=== PATIENT | male | born 1990 | race Caucasian/White ===

== ENCOUNTER 2022-02-11 11:46 | Inpatient (IN) | payer OTHER ==
[~2022-02-11] VITALS: Ht 193 cm; Wt 105.3 kg
[~2022-02-11 11:46] MED LIST: FOLIC ACID 1MG TAB PO SCH; MULTIVITAMINS/MINERALS THERAP 1 TAB PO SCH
[2022-02-11] MEDS ORDERED: NS 1,000 ML IV ONE (12:20)
[2022-02-11] MEDS ORDERED: LORazepam 2 MG/ML VIAL IV STA ×2 (12:23→20:05)
[2022-02-11 12:48] LABS: BASO % 1.5 % (0.0-1.0); LYMPH # 0.3 10^3/uL (1.5-5.0); LYMPH % 14.7 % (24.0-44.0); MEAN CORPUSCULAR HEMOGLOBIN 31.6 pg (27.0-33.0); MEAN CORPUSCULAR HGB CONC 34.9 g/dl (32.0-36.5); MEAN CORPUSCULAR VOLUME 90.5 fl (80.0-96.0); MONO # 0.3 10^3/uL (0.0-0.8); MONO % 14.7 % (2.0-8.0); NEUTROPHILS # 1.4 10^3/uL (1.5-8.5); NEUTROPHILS % 68.6 % (36.0-66.0); RED BLOOD COUNT 4.75 10^6/uL (4.30-6.10)
[2022-02-11] MEDS: THIAMINE 100 MG TAB PO SCH ×2 (13:01→20:48)
[2022-02-11 13:14] LABS: PLATELET COUNT, AUTOMATED 52 10^3/uL (150-450)
[2022-02-11 13:28] LABS: ACETAMINOPHEN LEVEL < 2.0 UG/ML (10.0-30.0); ALBUMIN 4.7 GM/DL (3.2-5.2); ALT/SGPT 276 U/L (12-78); BILIRUBIN,DIRECT 0.4 MG/DL (0.0-0.2); BILIRUBIN,TOTAL 2.5 MG/DL (0.2-1.0); BLOOD UREA NITROGEN 14 MG/DL (7-18); CARBON DIOXIDE LEVEL 25 MEQ/L (21-32); CHLORIDE LEVEL 93 MEQ/L (98-107); CREATININE FOR GFR 1.03 MG/DL (0.70-1.30); ETHYL ALCOHOL (ETHANOL) 0.355 % (0.000-0.010); GLOMERULAR FILTRATION RATE > 60.0 (>60); GLUCOSE, FASTING 80 MG/DL (70-100); POTASSIUM SERUM 5.8 MEQ/L (3.5-5.1); SALICYLATE LEVEL < 1.7 MG/DL (5.0-30.0); SODIUM LEVEL 131 MEQ/L (136-145); TOTAL PROTEIN 8.3 GM/DL (6.4-8.2)
[2022-02-11] MEDS: LORazepam 2 MG TAB PO PRN ×3 (19:00→23:40)
[2022-02-11] MEDS ORDERED: HOME MED LIST COMPLETE! XX SCH (20:40)
[2022-02-11] MEDS ORDERED: NS 1,000 ML IV SCH (23:20)
[2022-02-11 23:39] LABS: HEMATOCRIT 37.6 % (42.0-52.0); HEMOGLOBIN 13.1 g/dl (13.5-17.5); MEAN CORPUSCULAR HEMOGLOBIN 31.6 pg (27.0-33.0); MEAN CORPUSCULAR HGB CONC 34.8 g/dl (32.0-36.5); MEAN CORPUSCULAR VOLUME 90.8 fl (80.0-96.0); RED BLOOD COUNT 4.14 10^6/uL (4.30-6.10); WHITE BLOOD COUNT 1.8 10^3/uL (4.0-10.0)
[2022-02-11 23:40] LABS: PLATELET COUNT, AUTOMATED 43 10^3/uL (150-450)
[2022-02-12] VITALS (13 sets, daily range): BP systolic 159–165; BP diastolic 85–101
[2022-02-12 00:11] LABS: BLOOD UREA NITROGEN 13 MG/DL (7-18); CALCIUM LEVEL 9.2 MG/DL (8.5-10.1); CARBON DIOXIDE LEVEL 29 MEQ/L (21-32); CHLORIDE LEVEL 95 MEQ/L (98-107); CREATININE FOR GFR 0.89 MG/DL (0.70-1.30); GLOMERULAR FILTRATION RATE > 60.0 (>60); GLUCOSE, FASTING 82 MG/DL (70-100); POTASSIUM SERUM 3.8 MEQ/L (3.5-5.1); SODIUM LEVEL 136 MEQ/L (136-145)
[2022-02-12 00:46] LABS: AMPHETAMINES LEVEL URINE NEGATIVE (NEGATIVE); BARBITURATES URINE NEGATIVE (NEGATIVE); BENZODIAZEPINES URINE NEGATIVE (NEGATIVE); CANNABINOIDS URINE NEGATIVE (NEGATIVE); COCAINE METABOLITE URINE NEGATIVE (NEGATIVE); METHADONE URINE NEGATIVE (NEGATIVE); OPIATES URINE NEGATIVE (NEGATIVE); PHENCYCLIDINE URINE NEGATIVE (NEGATIVE)
[2022-02-12] MEDS: LORazepam 2 MG TAB PO PRN ×4 (02:13→17:32)
[2022-02-12] MEDS: ONDANSETRON 4MG 2ML VIAL IV PRN ×4 (04:37→23:59)
[2022-02-12] MEDS ORDERED: IBUPROFEN 400MG TAB PO ONE (05:00)
[2022-02-12] MEDS ORDERED: LORazepam 2 MG/ML VIAL IV ONE (05:00)
[2022-02-12] MEDS ORDERED: GLUCOSE 4GM CHEW TABLET PO PRN (06:05)
[2022-02-12] MEDS ORDERED: DEXTROSE 50% 50 ML SYRINGE IV PRN (06:05)
[2022-02-12] MEDS ORDERED: GLUCAGON INJ 1MG VIAL SC PRN (06:05)
[2022-02-12 06:10] LABS: HEMATOCRIT 36.5 % (42.0-52.0); HEMOGLOBIN 12.7 g/dl (13.5-17.5); MEAN CORPUSCULAR HEMOGLOBIN 31.7 pg (27.0-33.0); MEAN CORPUSCULAR HGB CONC 34.8 g/dl (32.0-36.5); RED BLOOD COUNT 4.01 10^6/uL (4.30-6.10); WHITE BLOOD COUNT 1.9 10^3/uL (4.0-10.0)
[2022-02-12 06:28] LABS: PLATELET COUNT, AUTOMATED 42 10^3/uL (150-450)
[2022-02-12 06:46] LABS: INR 1.13; PROTHROMBIN TIME 14.9 SECONDS (12.7-14.5)
[2022-02-12 06:48] LABS: ALT/SGPT 217 U/L (12-78); BILIRUBIN,TOTAL 2.3 MG/DL (0.2-1.0); BLOOD UREA NITROGEN 10 MG/DL (7-18); CALCIUM LEVEL 8.8 MG/DL (8.5-10.1); CARBON DIOXIDE LEVEL 25 MEQ/L (21-32); CHLORIDE LEVEL 97 MEQ/L (98-107); CREATININE FOR GFR 0.78 MG/DL (0.70-1.30); GLOMERULAR FILTRATION RATE > 60.0 (>60); GLUCOSE, FASTING 66 MG/DL (70-100); POTASSIUM SERUM 3.8 MEQ/L (3.5-5.1); SODIUM LEVEL 135 MEQ/L (136-145); TOTAL PROTEIN 6.9 GM/DL (6.4-8.2)
[2022-02-12 08:16] LABS: HEMOGLOBIN A1c 4.9 %
[2022-02-12] MEDS: MULTIVITAMINS/MINERALS THERAP 1 TAB PO SCH (08:49)
[2022-02-12] MEDS: THIAMINE 100 MG TAB PO SCH ×2 (08:49→20:33)
[2022-02-12] MEDS: FOLIC ACID 1MG TAB PO SCH (08:49)
[2022-02-12 10:13] LABS: HEPATITIS B SURFACE ANTIGEN NEGATIVE (NEGATIVE); HEPATITIS C VIRUS ABY INDEX < 0.0 INDEX (<0.8)
[2022-02-12] MEDS: KCL 20MEQ IN D5/NS 1000ML 1,000 ML IV SCH ×2 (10:51→17:25)
[2022-02-13] VITALS (7 sets, daily range): BP systolic 120–164; BP diastolic 78–99
[2022-02-13] MEDS: LORazepam 2 MG TAB PO PRN ×3 (00:01→10:26)
[2022-02-13] MEDS: KCL 20MEQ IN D5/NS 1000ML 1,000 ML IV SCH ×4 (00:05→21:45)
[2022-02-13] MEDS ORDERED: OXAZEPAM 15MG CAP PO SCH (06:00)
[2022-02-13] MEDS: ONDANSETRON 4MG 2ML VIAL IV PRN ×3 (06:09→18:16)
[2022-02-13 06:11] LABS: HEMATOCRIT 39.1 % (42.0-52.0); HEMOGLOBIN 13.7 g/dl (13.5-17.5); MEAN CORPUSCULAR HEMOGLOBIN 32.2 pg (27.0-33.0); RED BLOOD COUNT 4.25 10^6/uL (4.30-6.10); WHITE BLOOD COUNT 2.4 10^3/uL (4.0-10.0)
[2022-02-13 06:13] LABS: PLATELET COUNT, AUTOMATED 46 10^3/uL (150-450)
[2022-02-13 06:48] LABS: ALBUMIN 4.1 GM/DL (3.2-5.2); ALT/SGPT 237 U/L (12-78); BILIRUBIN,TOTAL 2.4 MG/DL (0.2-1.0); BLOOD UREA NITROGEN 7 MG/DL (7-18); CALCIUM LEVEL 9.7 MG/DL (8.5-10.1); CARBON DIOXIDE LEVEL 27 MEQ/L (21-32); CHLORIDE LEVEL 101 MEQ/L (98-107); CREATININE FOR GFR 0.92 MG/DL (0.70-1.30); GLOMERULAR FILTRATION RATE > 60.0 (>60); GLUCOSE, FASTING 104 MG/DL (70-100); POTASSIUM SERUM 3.8 MEQ/L (3.5-5.1); SODIUM LEVEL 135 MEQ/L (136-145)
[2022-02-13] MEDS: THIAMINE 100 MG TAB PO SCH ×2 (08:18→20:23)
[2022-02-13] MEDS: FOLIC ACID 1MG TAB PO SCH (08:18)
[2022-02-13] MEDS: MULTIVITAMINS/MINERALS THERAP 1 TAB PO SCH (08:18)
[2022-02-13] MEDS: OXAZEPAM 15MG CAP PO SCH ×3 (11:42→23:32)
[2022-02-13] MEDS: cloNIDine 0.1MG TABLET PO SCH ×3 (13:15→23:31)
[2022-02-14 05:01] VITALS: BP 148/92
[2022-02-14 05:02] VITALS: BP 148/92
[2022-02-14] MEDS: cloNIDine 0.1MG TABLET PO SCH ×3 (05:04→17:25)
[2022-02-14] MEDS: OXAZEPAM 15MG CAP PO SCH ×3 (05:05→17:25)
[2022-02-14] MEDS: KCL 20MEQ IN D5/NS 1000ML 1,000 ML IV SCH ×3 (05:05→18:28)
[2022-02-14] MEDS: ONDANSETRON 4MG 2ML VIAL IV PRN ×3 (05:07→18:33)
[2022-02-14 05:54] LABS: HEMATOCRIT 38.3 % (42.0-52.0); MEAN CORPUSCULAR HGB CONC 33.9 g/dl (32.0-36.5); MEAN CORPUSCULAR VOLUME 94.3 fl (80.0-96.0); RED BLOOD COUNT 4.06 10^6/uL (4.30-6.10); WHITE BLOOD COUNT 2.7 10^3/uL (4.0-10.0)
[2022-02-14 05:57] LABS: PLATELET COUNT, AUTOMATED 46 10^3/uL (150-450)
[2022-02-14 06:20] LABS: ALBUMIN 3.8 GM/DL (3.2-5.2); ALT/SGPT 252 U/L (12-78); BLOOD UREA NITROGEN 8 MG/DL (7-18); CALCIUM LEVEL 10.1 MG/DL (8.5-10.1); CARBON DIOXIDE LEVEL 28 MEQ/L (21-32); CHLORIDE LEVEL 104 MEQ/L (98-107); CREATININE FOR GFR 1.04 MG/DL (0.70-1.30); GLOMERULAR FILTRATION RATE > 60.0 (>60); GLUCOSE, FASTING 96 MG/DL (70-100); POTASSIUM SERUM 4.6 MEQ/L (3.5-5.1); SODIUM LEVEL 135 MEQ/L (136-145); TOTAL PROTEIN 6.7 GM/DL (6.4-8.2)
[2022-02-14] MEDS: FOLIC ACID 1MG TAB PO SCH (08:09)
[2022-02-14] MEDS: MULTIVITAMINS/MINERALS THERAP 1 TAB PO SCH (08:09)
[2022-02-14] MEDS: THIAMINE 100 MG TAB PO SCH (10:50)
[2022-02-14 14:00] VITALS: BP 137/86
[2022-02-14 14:06] VITALS: BP 137/86
[2022-02-14 22:00] VITALS: BP 128/73
[2022-02-15] MEDS: KCL 20MEQ IN D5/NS 1000ML 1,000 ML IV SCH ×3 (00:01→16:36)
[2022-02-15] MEDS: OXAZEPAM 15MG CAP PO SCH ×4 (00:02→17:28)
[2022-02-15] MEDS: cloNIDine 0.1MG TABLET PO SCH ×4 (00:13→17:29)
[2022-02-15 05:50] LABS: HEMATOCRIT 40.9 % (42.0-52.0); HEMOGLOBIN 13.7 g/dl (13.5-17.5); MEAN CORPUSCULAR HEMOGLOBIN 31.6 pg (27.0-33.0); MEAN CORPUSCULAR HGB CONC 33.5 g/dl (32.0-36.5); MEAN CORPUSCULAR VOLUME 94.2 fl (80.0-96.0); RED BLOOD COUNT 4.34 10^6/uL (4.30-6.10); WHITE BLOOD COUNT 3.7 10^3/uL (4.0-10.0)
[2022-02-15 05:53] LABS: PLATELET COUNT, AUTOMATED 66 10^3/uL (150-450)
[2022-02-15 06:00] VITALS: BP 131/81
[2022-02-15 06:27] LABS: ALBUMIN 4.1 GM/DL (3.2-5.2); ALT/SGPT 251 U/L (12-78); BILIRUBIN,TOTAL 1.4 MG/DL (0.2-1.0); BLOOD UREA NITROGEN 9 MG/DL (7-18); CARBON DIOXIDE LEVEL 27 MEQ/L (21-32); CHLORIDE LEVEL 104 MEQ/L (98-107); CREATININE FOR GFR 0.93 MG/DL (0.70-1.30); FERRITIN 1009 NG/ML (26-388); GLOMERULAR FILTRATION RATE > 60.0 (>60); GLUCOSE, FASTING 104 MG/DL (70-100); IRON (FE) 68 UG/DL (65-175); PERCENT SATURATION 22.9 % (19.7-50.0); POTASSIUM SERUM 4.4 MEQ/L (3.5-5.1); SODIUM LEVEL 137 MEQ/L (136-145); TOTAL IRON BINDING CAPACITY 297 UG/DL (250-450); TOTAL PROTEIN 6.9 GM/DL (6.4-8.2)
[2022-02-15] MEDS ORDERED: OXAZ30CA2 PO (07:32)
[2022-02-15] MEDS ORDERED: THIA100TA PO ×2 (07:32→10:56)
[2022-02-15] MEDS ORDERED: VITMTA PO ×2 (07:32→10:56)
[2022-02-15] MEDS ORDERED: FOLI1TAB11 PO ×2 (07:32→10:56)
[2022-02-15] MEDS ORDERED: CLONI1TA PO ×2 (07:32→10:56)
[2022-02-15] MEDS ORDERED: AMLO1TAB25 PO ×2 (07:32→10:56)
[2022-02-15] MEDS: MULTIVITAMINS/MINERALS THERAP 1 TAB PO SCH (08:52)
[2022-02-15] MEDS: THIAMINE 100 MG TAB PO SCH (08:52)
[2022-02-15] MEDS: FOLIC ACID 1MG TAB PO SCH (08:52)
[2022-02-15] MEDS: ONDANSETRON 4MG 2ML VIAL IV PRN ×2 (08:54→15:14)
[2022-02-15] MEDS ORDERED: SELF1KIT MC ×2 (08:56→10:58)
[2022-02-15] MEDS ORDERED: OXAZ15CA4 PO (10:56)
[2022-02-15 14:00] VITALS: BP 110/73
[2022-02-15] MEDS ORDERED: ONDA8TAB8 PO (15:18)
[2022-02-15 17:29] VITALS: BP 132/76
== END 2022-02-15 18:02 | disposition home or self-care (01) | DRG 898 ==
LOC: M ED 11:46 → M ED INP 22:53 → ENRESERV 23:36 → M MSPAV 02-12 02:29
PROVIDERS: ADMIT Internal Medicine; ATTEND General Practice
DX: F10.231 Alcohol dependence with withdrawal delirium (principal); D61.818 Other pancytopenia; E87.1 Hypo-osmolality and hyponatremia; K70.30 Alcoholic cirrhosis of liver without ascites; E16.2 Hypoglycemia, unspecified; Z79.899 Other long term (current) drug therapy; K70.10 Alcoholic hepatitis without ascites; E87.5 Hyperkalemia